=== PATIENT | female | born 1965 | race Caucasian/White ===

== ENCOUNTER 2022-04-08 09:53 | Emergency (ER) | payer BC, SELFPAY ==
--- NOTE | ~2022-04-08 | XR_ITS ---
EXAMINATION: RIGHT FOOT AND ANKLE X-RAY CLINICAL INFORMATION: Injury. Pain. COMPARISON: None TECHNIQUE: 3 views of the right foot and 3 views of the right ankle FINDINGS: Right foot: Bone alignment is normal. No fracture or dislocation is seen. The joint spaces are normal. There is a small plantar calcaneal spur. Soft tissues are otherwise normal. Right ankle: Bone alignment is normal. No fracture or dislocation is seen. The ankle mortise is normal. There is mild lateral soft tissue swelling. There may be an ankle joint effusion. XR/XR foot RT 2V IMPRESSION: Right foot: Small plantar calcaneal spur. Right ankle: Lateral soft tissue swelling and ankle joint effusion. No fracture seen.
--- NOTE | ~2022-04-08 | XR_ITS ---
EXAMINATION: RIGHT FOOT AND ANKLE X-RAY CLINICAL INFORMATION: Injury. Pain. COMPARISON: None TECHNIQUE: 3 views of the right foot and 3 views of the right ankle FINDINGS: Right foot: Bone alignment is normal. No fracture or dislocation is seen. The joint spaces are normal. There is a small plantar calcaneal spur. Soft tissues are otherwise normal. Right ankle: Bone alignment is normal. No fracture or dislocation is seen. The ankle mortise is normal. There is mild lateral soft tissue swelling. There may be an ankle joint effusion. XR/XR ankle RT min 3V IMPRESSION: Right foot: Small plantar calcaneal spur. Right ankle: Lateral soft tissue swelling and ankle joint effusion. No fracture seen.
[2022-04-08 10:00] VITALS: BP 137/91; PULSE 87; RESP 18; TEMP 36.6; O2SAT 98; BMI 23.8
--- NOTE | 2022-04-08 11:46 | ED_ITS ---
HPI - Extremity Injury (Lower) General Chief Complaint: Extremity Injury, Lower Stated Complaint: possible broken R foot Time Seen by Provider: 04/08/22 09:55 Source: patient Mode of arrival: ambulatory Limitations: no limitations History of Present Illness HPI Narrative: 56-year-old female presenting to the ED with complaints of right ankle / foot pain / swelling since yesterday when she was outside she stepped in a hole accidentally and her foot went inward and since then she has been having pain/ swelling and moderate bruising unable to actually walk on the foot. She denies Paresthesias, head injury loss of consciousness or being on any blood thinners or any other injuries Complaints or concerns at this time. MD complaint: ankle injury, foot injury and other ( near fall) Onset (ago): day(s) ( yesterday) Injury: Right: ankle and foot Type of Injury: inversion Place: street/outdoors Severity: severe Severity scale (1-10): >10 Relieving factors: nothing Exacerbating factors: weight bearing, movement and palpation Context: other ( near fall she tripped on a home) Associated symptoms: swelling and unable to bear weight Other symptoms: none Related Data Previous Rx's Medication Instructions Recorded acetaminophen 500 mg tablet 1,000 mg PO QID PRN fever or pain 04/08/22 (Tylenol Extra Strength) #14 tabs ibuprofen 800 mg tablet 800 mg PO Q8H PRN pain #14 tabs 04/08/22 oxycodone 5 mg tablet 5 mg PO Q6H PRN pain #14 tabs 04/08/22 Allergies Allergy/AdvReac Type Severity Reaction Status Date / Time No Known Allergies Allergy Unverified 07/13/20 14:47 Review of Systems Review of Systems: Constitutional : No Weight loss, No Fever, No Chills, No Night Sweats, No Fatigue, No Malaise ENT/Mouth : No Hearing loss, No Ear Pain, No Nasal Congestion, No Sinus Pain, No Hoarseness, No sore throat, No Rhinorrhea, No Swallowing Difficulty Eyes: No Eye Pain, No Swelling, No Redness, No Foreign Body, No Discharge, No Vi rachna Changes Cardiovascular : No Chest Pain, No SOB, No Dyspnea on Exertion, No Orthopnea, No Edema, No Palpitations Respiratory : No Cough, No Sputum, No Wheezing, No Smoke Exposure, No Dyspnea Gastrointestinal : No Nausea, No Vomiting, No Diarrhea, No Constipation, No abdominal Pain, No Hematochezia, No Melena Genitourinary : no irregular bleeding, No Dysuria, No Urinary Frequency, No Hematuria, No Urinary Incontinence, No Urgency, No Flank Pain, No Urinary Flow Changes, No Hesitancy Musculoskeletal : Right foor/ankle pain/swelling, No Myalgias Skin : No Skin Lesions, No rash Neuro : No Weakness, No Numbness, No Paresthesias, No Loss of Consciousness, No Dizziness, No Headache Psych : No Anxiety/Panic, No Depression, No SI/HI/AH/VH, No Social Issues, Heme/Lymph: No Bruising, No Bleeding,No Lymphadenopathy Endocrine : No Polyuria, No Polydipsia, No Temperature Intolerance Yes all other systems are reviewed and are negative [facility] Past Medical History Attestation statement: The following information was validated with the patient. Source: old records reviewed and nursing notes reviewed Social History Social History Advance Directives: No Advance Directives Information Provided: No Physical Exam Vital Signs: Vital Signs: Last Vital Signs Temp 98 F 04/08/22 10:00 Pulse 87 04/08/22 10:00 Resp 18 04/08/22 10:00 BP 137/91 H 04/08/22 10:00 Pulse Ox 98 04/08/22 10:00 O2 Del Method 04/08/22 10:00 BMI result Body Mass Index 23.8 vital signs have been reviewed as normal and appeared to be correct. Blood pressure 137/91. Heart rate normal. Respiration rate normal. Temperature normal. Oxygen saturation normal. Appearance: Alert. Oriented X3. No acute distress. Head: Normal external exam. Normocephalic. Atraumatic. Eyes: PERRLA. EOMI. Conjunctiva and sclera normal. Eyelids normal. ENT: Pharynx normal. Uvula midline. Moist mucous membranes. Normal voice. Neck: Normal inspection. Neck supple. FROM. No adenopathy. Thyroid Normal. No meningeal signs. CVS: Normal heart rate and rhythm. Heart sound normal. Pulses normal throughout. Respiratory: No respiratory distress. Painless inspiration. Back: Full range of motion noted. Skin: Skin warm and dry. Normal skin color. Normal skin turgor. No rashes/lesions/lacerations noted. Extremities: patient moderate tenderness palpation /ecchymosis and soft tissue swelling to the right ankle at the lateral aspect and the dorsal/proximal aspect of the right foot. No obvious ligamentous or tendon injury noted. Achilles tendon is intact. Patient also has tenderness palpation to the medial aspect of the right ankle. She has limited range of motion with plantar flexion and dorsiflexion due to pain/ swelling she reports. She has full sensation. Otherwise all other extremities exhibit normal range of motion nontender. Neuro: Oriented X 3. No motor deficit. No sensory deficit. Reflexes normal. Normal steady gait. No focal neuro deficits noted. CN's II-XII intact bilaterally? Vascular: + radial pulses/+ 2 distal pedal pulses/+2 dorsalis pedis b/l. Normal cap refill. No cyanosis noted to upper extremity nails and lower extremity toes nails. Course Course Course Narrative: 11:35am - 56-year-old female presenting to the ED with complaints of right ankle / foot pain / swelling since yesterday when she was outside she stepped in a hole accidentally and her foot went inward and since then she has been having pain/ swelling and moderate bruising unable to actually walk on the foot. She denies Paresthesias, head injury loss of consciousness or being on any blood thinners or any other injuries Complaints or concerns at this time. Awaiting x-ray of right foot/ right ankle. Will provide oxycodone and Motrin and re-evaluate. Reevaluation(s) Reevaluation #1: x-ray negative for any acute processes. Patient is able to perform more dorsiflexion and plantar flexion. Therefore at this time will place her and a ortho boot with crutches and treat symptomatically instructed follow-up with orthopedics within 1-2 weeks if symptoms persist for possible ligament injury. Patient understands agrees with this plan. Time: 12:09 MDM - Extremity Injury (Lower) Medical Records Attestation: I reviewed the patient's medical records. Imaging Data Right foot/ ankle x-ray: Attestation: I personally reviewed and interpreted this imaging study as follows: Procedures Orthopedic Splinting/Casting Injury #1: Side: right Lower Extremity Injury Location: ankle and foot Lower Extremity Immobilizer: boot orthosis Other Orthopedic Equipment: crutches Discharge Plan Discharge Clinical Impression: Ankle sprain and strain Patient Disposition: Home, Self-Care Instructions: Crutch Instructions (ED), How to Use an Elastic Bandage (ED), Ankle Strain (ED) Prescriptions: New ibuprofen 800 mg tablet 800 mg PO Q8H PRN (Reason: pain) Qty: 14 0RF acetaminophen [Tylenol Extra Strength] 500 mg tablet 1,000 mg PO QID PRN (Reason: fever or pain) Qty: 14 0RF oxycodone 5 mg tablet 5 mg PO Q6H PRN (Reason: pain) Qty: 14 0RF Rx Instructions: Partial Fill upon patient request. Referrals: Jack Lyman MD [Physician] - 1 week ( Call in 1 week if symptoms persist to make a follow-up appointment within 2-3 weeks) Favio Avery MD [Primary Care Provider] - 2 days Stand Alone Forms: Work/School Release
[2022-04-08] MEDS: Ibuprofen 800 MG TABLET PO (12:26)
[2022-04-08] MEDS: oxyCODONE HCl Immed Release 5 MG TABLET PO (12:26)
== END 2022-04-08 12:56 | disposition home or self-care (01) ==
PROVIDERS: Emergency Provider Emergency Medicine; PCP Internal Medicine
DX: S93.401A Sprain of unspecified ligament of right ankle, initial encounter (principal); S96.911A Strain of unspecified muscle and tendon at ankle and foot level, right foot, initial encounter; X50.1XXA Overexertion from prolonged static or awkward postures, initial encounter; Y93.9 Activity, unspecified; Y92.410 Unspecified street and highway as the place of occurrence of the external cause; Y99.9 Unspecified external cause status
CPT/HCPCS: 73610; 73620; 99283; 99284